=== PATIENT | female | born 1975 | race Two or more races ===

== ENCOUNTER 2021-09-21 09:31 | Outpatient (REF) | payer OTHER, SELFPAY ==
[2021-09-21 09:44] LABS: MANUAL DIFF FLAG NO
[2021-09-21 10:02] LABS: Basophils Percent Auto 0.6 % (0-2); Eosinophils Absolute Auto 0.3 X10*3/uL (0.0-0.4); Eosinophils Percent Auto 5.7 % (0-4); Hemoglobin 13.1 g/dl (12.0-16.0); Imm Gran Abs Auto 0.01 X10*3/uL (0.00-0.03); Imm Gran Pct Auto 0.2 % (0.0-0.4); Lymphocytes Absolute Auto 1.9 X10*3/uL (1.2-4.9); Lymphocytes Percent Auto 37.9 % (20-40); Mean Corpuscular HGB Conc 31.2 g/dl (31.0-35.0); Mean Corpuscular Hemoglobin 26.9 pg (27.0-33.0); Mean Corpuscular Volume 86.2 fL (80.0-98.0); Mean Platelet Volume 11.1 fL (9.4-12.3); Monocytes Absolute Auto 0.3 X10*3/uL (0.1-1.2); Monocytes Percent Auto 6.7 % (2-11); Neutrophils Absolute Auto 2.5 x10*3/uL (2.0-8.3); Neutrophils Percent Auto 48.9 % (45-73); Platelet Count 243 X10*3/uL (160-400); Red Blood Count 4.87 X10*6/uL (4.20-5.50); Red Cell Distribution Width 12.3 % (11.0-16.0); White Blood Count 5.1 X10*3/uL (4.8-10.8)
[2021-09-21 10:26] LABS: Alanine Aminotransferase 14 U/L (0-31); Albumin Level 4.2 g/dL (3.5-5.0); Alkaline Phosphatase 56 U/L (39-117); Anion Gap 12 (12-20); Aspartate Amino Transferase 15 U/L (5-31); Blood Urea Nitrogen 11 mg/dL (9-16); Calcium 9.5 mg/dL (8.4-10.2); Carbon Dioxide 27 mmol/L (22-29); Chloride 104 mmol/L (96-108); Cholesterol 136 mg/dL; Estimated Glomerular Filt Rate > 60; Glucose Fasting 93 mg/dL (60-99); HDL Cholesterol 44 mg/dL; LDL Cholesterol Calculated 84 mg/dl; Potassium 4.5 mmol/L (3.3-5.1); Sodium 138 mmol/L (135-145); Total Protein 7.4 g/dL (6.5-8.0); Triglycerides 43 mg/dL
== END 2021-09-21 09:32 | disposition home or self-care (01) ==
LOC: HO.LAB 09:31
PROVIDERS: PCP Nurse Practitioner Family; Visit Provider Nurse Practitioner Family
DX: I10 Essential (primary) hypertension (principal); E78.00 Pure hypercholesterolemia, unspecified
CPT/HCPCS: 36415; 80053; 80061; 85025

== ENCOUNTER 2023-12-09 10:31 | Outpatient (AMB) | payer OTHER, SELFPAY ==
[2023-12-09 10:45] VITALS: BP 112/60; PULSE 74; RESP 14; TEMP 36.4; O2SAT 99; BMI 24.1
--- NOTE | 2023-12-09 10:45 | A.OFFPC_ITS ---
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 Promotion Officer Required: No Accompanied by: Spouse Allergies No Known Allergies Allergy (Verified 12/09/23 10:55) Medication List - Last Reconciled 12/09/23 by Harpreet Sutton CNP No Known Home Meds Tobacco use date assessed: 12/09/23 Dental Screening Dental Screen Date: 12/09/23 Did you have a dental visit in the last 12 months?: Yes Did you have a dental problem in the last 6 months where you did not have access to dental care?: No Was dental information given to patient?: Patient has dentist HPI HPI Comments History of Present Illness Details New patient, accompanied by her Prior PCP:?[facility] Last office visit/CPE: About 2 years Acute issue(s): None Not on medications PMHx: Heart murmur, Gilbert syndrome SurgHx: Right hand surgery/cyst removal FHx: Mom: HTN, hypothyroidism. Dad: HTN, DM, Coumadin syndrome SocHx: Nonsmoker. Does not drink alcohol. No recreational drugs She notes that her pap smear test was at [facility] 1 year ago: normal She states that her last mammogram was 5 years ago: normal She notes that she has never had a colonoscopy done Interpretations by the patient's per patient's request [facility] Medical History (Updated 12/09/23 @ 11:16 by Harpreet Sutton CNP) Physical exam Family history of thyroid disease Otitis externa Surgical History (Updated 09/04/21 @ 14:33 by ADAN Levine) History of hand surgery Family History (Updated 09/04/21 @ 14:26 by ADAN Levine) Mother High blood pressure Hypothyroid Father Coumadin syndrome High blood pressure Diabetes Social History (Updated 09/04/21 @ 14:26 by ADAN Levine) Housing: House Alcohol intake: never Patient Tobacco Use Status: Never used Tobacco e-Cigarette/Vaping Use: Never Used Second Hand Smoke Exposure: No service: No Current occupational status: employed Current occupation: [employer] Cognitive needs: No Hearing needs: No Vision needs: No Questionnaire PHQ-9 Over the last 2 weeks, how often have you been bothered by any of the following problems? 1. Little interest or pleasure in doing things: not at all 2. Feeling down, depressed, or hopeless: not at all 3. Trouble falling or staying asleep, or sleeping too much: not at all 4. Feeling tired or having little energy: not at all 5. Poor appetite or overeating: not at all 6. Feeling bad about yourself - or that you are a failure or have let yourself or your family down: not at all 7. Trouble concentrating on things, such as reading the newspaper or watching television: not at all 8. Moving or speaking so slowly that other people could have noticed. Or the opposite - being so fidgety or restless that you have been moving around a lot more than usual: not at all 9. Thoughts that you would be better off or of hurting yourself in some way: not at all Total score: 0 Depression Screening Interpretation: Negative Depression Screening Done: Yes 96211 - PHQ-9 Billing: Yes Source: Developed by Drs. Carlos Verduzco, Kerry Salas, Matt Zambrano and colleagues, with an educational basil from [employer]. Thrive Questionnaire Date Thrive assessed: 12/09/23 I am a: Patient What is your living situation today?: I have a steady place to live Within the past 12 months, did the food you bought not last and you didn't have the money to get more?: Never true Within the past 12 months, did you worry whether your food would run out before you got money to buy more?: Never true Do you have trouble paying for medicines?: No Do you have trouble getting transportation to medical appointments?: No Do you have trouble paying your heating and electricity bill?: No Do you have trouble taking care of your child, family member or friend?: No Do you have trouble with day-to-day activities such as bathing, preparing meals, shopping, managing finances, etc.?: No Are you currently unemployed and looking for a job?: No Are you interested in more education?: No Please select the resources that you would like help with: None Currently or been in a relationship where the following occur: No concerns reported THRIVE Score: 0 AUDIT C Alcohol Use Questionnaire (AUDIT-C) 1. How often do you have a drink containing alcohol?: Never 3. How often do you have six or more drinks on one occasion?: Never Total Score: 0 CM-7 AMB Questionnaire CM-7 Date CM - 7 assessed: 12/09/23 Feeling nervous, anxious, or on edge: 0 = Not at all Not being able to stop or control worryin = Not at all Worrying too much about different things: 0 = Not at all Trouble relaxin = Not at all Being so restless that it is hard to sit still: 0 = Not at all Becoming easily annoyed or irritable: 0 = Not at all Feeling afraid as if something awful might happen: 0 = Not at all Total CM-7 score (0-4 normal; 5-9 mild; 10-14 moderate; 15-21 severe): 0 Source: Developed by Drs. Carlos Verduzco, Kerry Salas, Matt Zambrano and colleagues, with an educational basil from [employer]. CM-7 Assessment Billing CM-7 Assessment Tool: CM-7 Assessment 15394 Review of Systems Const Details: Denies chills, Denies fatigue, Denies fever(s), Denies headache(s) and Denies weakness HEENT Denies change in vision, Denies dizziness, Denies headache(s), Denies hearing loss, Denies nasal congestion, Denies sinus pain, Denies sinus pressure and Denies sore throat Card Denies chest pain, Denies lightheadedness, Denies dyspnea and Denies other (palpitations) Resp Denies cough, Denies dyspnea and Denies wheezing GI Denies abdominal pain, Denies melena, Denies hematochezia, Denies change in bowel habits, Denies dyspepsia and Denies nausea Denies hematuria and Denies dysuria Musc Denies abnormal gait, Denies myalgias, Denies arthralgias, Denies numbness and Denies tingling Skin/Breast Denies rash, Denies unusual bruising and Denies wounds Neuro Denies abnormal gait, Denies dizziness, Denies headache(s), Denies memory loss, Denies numbness, Denies Sensory deficit (Neuro), Denies tingling and Denies weakness Psych Denies anxiety, Denies depression and Denies memory loss Endo Denies cold intolerance, Denies fatigue, Denies heat intolerance, Denies polydipsia and Denies polyuria Luciano/Lymph Denies easy bleeding and Denies easy bruising Aller/Immun Denies wheezing Physical exam (Primary Care) Vital Signs: Last Vital Signs Temp 97.6 F 12/09/23 10:45 Pulse 74 12/09/23 10:45 Resp 14 12/09/23 10:45 BP 112/60 12/09/23 10:45 Pulse Ox 99 12/09/23 10:45 Oxygen Delivery Method Room Air 12/09/23 10:45 BMI result Body Mass Index 24.1 Tobacco/Smoking Status: Tobacco use Status Tobacco use date assessed 12/09/23 12/09/23 10:54 Patient Tobacco Use Status Never used Tobacco 12/09/23 10:46 e-Cigarette/Vaping Use Never Used 12/09/23 10:46 PHQ-9: PHQ-9 Score PHQ-9: Total score 0 12/09/23 10:54 Depression Screening Interpretation: Negative Thrive Assessment: Date of Thrive Assessment Date Thrive assessed 12/09/23 12/09/23 10:54 Currently or been in a relationship where the following occur: No concerns r eported Const Other: General: no acute distress, well developed, alert and awake Nutritional Appearance: well nourished Orientation/consciousness: patient oriented x3 HENMT Head: Yes normocephalic and Yes atraumatic Ears: hearing grossly normal bilaterally and TM's normal bilaterally General nose exam: Normal external nose present and Normal nares present Mouth: Normal oral and palatal mucosa present and moist mucous membranes Teeth and gingiva: dentition normal Throat: Yes oropharynx normal Eyes Pupils: Equal, round and reactive pupils present and Pupil accommodation reflex normal EOM: EOMs intact bilaterally Neck Neck: Yes normal visual inspection, Yes no lymphadenopathy and Yes trachea midline Thyroid: Thyroid normal Carotids: no bruits Lymphatic: no lymphadenopathy noted Chest Chest palpation & inspection: normal inspection of the chest Resp Effort & Inspection: normal respiratory effort Auscultation: clear to auscultation bilaterally Cardio Rate: regular rate Rhythm: regular rhythm Heart sounds: S1 normal heart sound present, S2 normal heart sound present, no gallops, no murmurs and no rubs Bruits: no abdominal aortic bruits and no carotid bruits GI Palpation (GI): No Abdominal aortic bruit present, Soft to palpation, nontender, No hepatosplenomegaly present and No Rebound tenderness present Auscultation: normal bowel sounds General: Yes no CVA tenderness Back/Spine/Pelvis Back: no CVA tenderness Cervical Spine: cervical ROM normal and No Cervical spine tenderness Thoracic/Lumbar Spine: thoraco-lumbar ROM normal, No pain with thoraco-lumbar ROM, No thoracic spinal tenderness and No lumbar spinal tenderness Skin General: warm and dry. Normal skin color. Normal skin turgor Lesions: no lesions Rashes: no rashes Trauma: no lacerations or abrasions Wounds: no wounds Nails: normal Neuro General: patient oriented x3, gait normal and CN's II-XI intact bilaterally Cranial nerves: Yes Equal, round and reactive pupils present Cognition (Neuro): normal cognition Gait exam (Neuro): Normal gait present Motor exam (neuro): 5/5 motor strength present throughout Sensory Exam: No Sensory deficit (Neuro) Deep tendon reflexes (DTR's): Right patellar reflex intensity grade: 2+ and Left patellar reflex intensity grade: 2+ Extrem General: Yes normal to inspection, No edema and No calf tenderness Psych Appearance: grossly normal Affect: normal affect Attitude: cooperative Thought process: Normal thought process present Assessment and Plan Assessment & Plan (1) Normal physical examination, routine: Code(s): Z00.00 - Encounter for general adult medical examination without abnormal findings Plan: No significant physical restrictions or limitations noted Healthy diet and routine exercise encouraged Advised to get lab work done and follow-up for telehealth visit for labs review in 2-3 weeks Return sooner with symptoms or concerns Verbalized understanding and agreed with the treatment plan (2) Cardiac murmur: Code(s): R01.1 - Cardiac murmur, unspecified Plan: Reports history of heart murmur Heart with RRR. No murmurs and no rubs (3) Gilbert syndrome: Code(s): E80.4 - Gilbert syndrome Plan: Reports history of Gilbert syndrome (4) Laboratory tests ordered as part of a complete physical exam (CPE): Code(s): Z00.00 - Encounter for general adult medical examination without abnormal findings Plan: Fasting labs ordered as part of a complete physical exam. Advised to fast for at least 10 hours before getting labs drawn. May drink water Verbalized understanding and agreed with treatment plan. (5) Pap smear for cervical cancer screening: Code(s): Z12.4 - Encounter for screening for malignant neoplasm of cervix Plan: Her pap smear test was at [facility] 1 year ago: normal. Record not available. Advised to sign a consent to obtain record from [facility] drum maker (6) Colon cancer screening: Code(s): Z12.11 - Encounter for screening for malignant neoplasm of colon Plan: She has never had a colonoscopy done Referred to [facility] gastroenterology for colonoscopy (7) Breast cancer screening by mammogram: Code(s): Z12.31 - Encounter for screening mammogram for malignant neoplasm of breast Plan: Last mammogram was 5 years ago: normal Mammogram ordered Orders: Orders MM screening mammo BI Today Z12.31 - Encounter for screening mammogram for malignant neoplasm of breast Complete Blood Count Auto Diff Today Z00.00 - Encounter for general adult medical examination without abnormal findings Comprehensive [place]. Panel Fast Today Z00.00 - Encounter for general adult medical examination without abnormal findings Lipid Panel Today Z00.00 - Encounter for general adult medical examination without abnormal findings TSH reflex Free T4 Today Z00.00 - Encounter for general adult medical examination without abnormal findings UA CC w/rflx Micro + Cult Today Z00.00 - Encounter for general adult medical examination without abnormal findings Microalbumin, Random (w Creat) Today Z00.00 - Encounter for general adult medical examination without abnormal findings Referrals Gastroenterology Referral Z12.11 - Encounter for screening for malignant ne oplasm of colon Coding Level of Care Code New Pt Prev Care 40-64y(79120) Diagnoses Normal physical examination, routine Z00.00 Cardiac murmur R01.1 Gilbert syndrome E80.4 Laboratory tests ordered as part of a complete physical exam (CPE) Z00.00 Pap smear for cervical cancer screening Z12.4 Colon cancer screening Z12.11 Breast cancer screening by mammogram Z12.31 Additional Codes CM-7 Assessment Billing - CM-7 Assessment Tool: CM-7 Assessment 49907 ([id number])
== END 2023-12-09 11:21 | disposition home or self-care (01) ==
PROVIDERS: Visit Provider Nurse Practitioner Family
DX: Z00.00 Encounter for general adult medical examination without abnormal findings (principal); R01.1 Cardiac murmur, unspecified; E80.4 Gilbert syndrome; Z12.11 Encounter for screening for malignant neoplasm of colon; Z12.31 Encounter for screening mammogram for malignant neoplasm of breast
CPT/HCPCS: 99396

== ENCOUNTER 2024-02-01 11:57 | Outpatient (REF) | payer OTHER, SELFPAY ==
--- NOTE | ~2024-02-01 | MM_ITS ---
EXAMINATION: MM SCREENING DIGITAL BREAST TOMOSYNTHESIS, BILATERAL CLINICAL INFORMATION: Screening. Asymptomatic. COMPARISON: Mammography: Compared with available prior. TECHNIQUE: Digital breast tomosynthesis is performed in both the craniocaudal and mediolateral oblique views along with computer-aided detection (CAD). Synthesized 2D images are generated from the tomosynthesis. FINDINGS: There are scattered areas of fibroglandular density (ACR BI-RADS breast composition Category b). Left: Focal asymmetry lower inner breast posterior depth. No suspicious calcifications or other abnormal findings. Right: Focal asymmetry central outer breast middle to posterior depth. No suspicious calcifications or other abnormal findings. MM/MM tomosynthesis screening BI IMPRESSION: Bilateral focal asymmetries. Additional imaging and possible ultrasound recommended at this time. ASSESSMENT: BI-RADS BI-RADS 0 - Incomplete: Needs additional Imaging. RECOMMENDATION: 1. Additional views of the bilateral breasts 2. Targeted ultrasound if warranted after review of the additional views. 3. Radiology department staff will contact the patient for additional imaging. Additional Imaging required This examination should not preclude the clinical evaluation of a suspicious palpable abnormality. This patient's information was entered into a reminder system with a target due date for their next mammogram. Electronically signed by: Dipti Salas DO 02/29/2024 09:08 PM EDT
== END 2024-02-01 11:58 | disposition home or self-care (01) ==
LOC: HO.MAMMO 11:57
PROVIDERS: PCP Nurse Practitioner Family; Visit Provider Nurse Practitioner Family
DX: Z12.31 Encounter for screening mammogram for malignant neoplasm of breast (principal)
CPT/HCPCS: 77063; 77067

== ENCOUNTER → 2024-02-01 12:00 | Outpatient (BNV) | payer OTHER, SELFPAY | PROVIDERS: PCP Nurse Practitioner Family; Visit Provider Internal Medicine | DX: Z12.31 Encounter for screening mammogram for malignant neoplasm of breast (principal) | CPT/HCPCS: 77063; 77067 ==

== ENCOUNTER 2025-02-06 12:00 | Outpatient (REF) | payer OTHER, SELFPAY ==
--- OUTSIDE RECORDS SUMMARY | 2025-02-06 12:45 | XMS_ITS | Clinical Summary ---
Author Organization [facility] Address [address] [place] [address] Care Team Providers Care Electrophysiology Scientist Name Role Phone Unavailable Primary Care Provider Unavailabl e Source Comments PLEASE NOTE, if this patient is a minor, it may be UNLAWFUL to discuss sensitive information that is contained in these records (such as FAMILY PLANNING, MENTAL HEALTH or SUBSTANCE ABUSE) with the minor patient's parent or other person without the patient's specific authorization.[facility] Allergies No known active allergies Medications No known medications Active Problems Problem Noted Date Diagnosed Date Heart murmur 08/29/2018 Gilbert syndrome 08/29/2018 Overview (08/29/2018): Diagnosed 5 year at [facility] medical Family History Medical History Relation Name Comments Clotting Disorder Father Hypertension Maternal Grandfather Hypertension Maternal Grandmother Hypertension Mother Thyroid Disease Mother Arthritis Sister Relation Name Status Comments Father Alive Maternal Grandfather Maternal Grandmother Mother Alive Sister Social History Tobacco Use Types Packs/Day Years Used Date Smoking Tobacco: Never Smokeless Tobacco: Never Alcohol Use Standard Drinks/Week Comments No 0 (1 standard drink = 0.6 oz pur e alcohol) Social Connections Answer Date Recorded Social Connections and Isolation 0 02/05/2019 Financial Resource Strain Answer Date R ecorded Financial Resource Strain 0 2018 Stress Answer Date Recorded Stress 0 02/05/2019 Physical Activity Answer Date Recorded Physical Activity 0 02/05/2019 Food Insecurity Answer Date Recorded Food 0 02/05/2019 Transportation Needs Answer Date Record ed Transportation 0 02/05/2019 Housing Stability Answer Date Recorded Housing 0 02/05/2019 Safety and Environment Answer Date Denis rded Safety 0 02/05/2019 Utilities Answer Date Recorded Utilities 0 02/05/2019 Employment Answer Date Recorded Employment 0 02/05/2019 Comments No Sex and Gender Information Value Date Recorded Sex Assigned at Female 08/29/2018 7:19 AM PDT Legal Sex Female 8:17 AM PST Gender Identity Female 08/29/2018 7:19 AM PDT Sexual Orientation Straight 08/29/2018 7: 19 AM PDT Last Filed Vital Signs Vital Sign Reading Time Taken Comments Blood Pressure 118/70 08/29/2018 10:20 AM EDT Pulse 89 08/29/2018 10:20 AM EDT Temperature 36.2 C (97.1 F) 08/29/2018 10:20 AM EDT Respiratory Rate - - Oxygen Saturation - - Inhaled Oxygen Concentration - - Weight 72.7 kg (160 lb 4.8 oz) 08/29/2018 10:20 AM EDT Height 165.1 cm (5' 5 ) 08/29/2018 10:20 AM EDT Body Mass Index 26.68 08/29/2018 10:20 AM EDT Plan of Treatment Not on file Insurance [facility]
== END 2025-02-06 12:01 | disposition home or self-care (01) ==
LOC: HO.MAMMO 12:00
PROVIDERS: PCP Nurse Practitioner Family; Visit Provider Nurse Practitioner Family
DX: Z13.89 Encounter for screening for other disorder (principal)

== ENCOUNTER 2025-03-05 12:42 | Outpatient (REF) | payer OTHER, SELFPAY ==
--- NOTE | ~2025-03-05 | MM_ITS ---
EXAMINATION(S): 1. MM DIAGNOSTIC DIGITAL BREAST TOMOSYNTHESIS, BILATERAL 2. Targeted ultrasound of the right breast 3. Targeted ultrasound of the left breast CLINICAL INFORMATION: Callback from screening obtained in January 2024 for bilateral findings: -Right: Focal asymmetry in the central outer breast middle to posterior depth -Left: Focal asymmetry in the lower inner quadrant posterior depth COMPARISON: February 01, 2024 and March 02, 2017. TECHNIQUE: Digital breast tomosynthesis is performed in full field ML 90 degrees along with computer-aided detection (CAD). Synthesized 2D images are generated from the tomosynthesis. Spot compression tomosynthesis were obtained. FINDINGS: BREAST COMPOSITION: There are scattered areas of fibroglandular density (ACR BI-RADS breast composition Category b). RIGHT BREAST: Previously suggested focal asymmetry in the lower outer quadrant is pliable with spot compression; local parenchyma is similar to prior study in 2017. Findings likely represented overlapping fibroglandular breast tissue. No significant masses, suspicious calcifications or other abnormalities are seen. Targeted ultrasound of the right breast was performed at the location of the mammographic finding. The survey throughout the lower outer quadrant did not reveal suspicious sonographic findings. LEFT BREAST: Previously suggested focal asymmetry in the lower inner quadrant is pliable with spot compression; local parenchyma is similar to prior study in 2017. Findings likely represented overlapping fibroglandular breast tissue. No significant masses, suspicious calcifications or other abnormalities are seen. Targeted ultrasound of the left breast was performed at the location of the mammographic finding. The survey throughout the lower inner quadrant did not reveal suspicious sonographic findings. MM/MM tomosynthesis added view BI IMPRESSION: RIGHT BREAST: Negative, no evidence of malignancy. LEFT BREAST: Negative, no evidence of malignancy. Patient may return to routine screening mammogram in one year. ASSESSMENT: BI-RADS 1 - Negative RECOMMENDATION: 1 year F/U Results were provided to the patient at time of visit by the technologist. This patient's information was entered into a reminder system with a target due date for their next mammogram. Electronically signed by: Wallace Justice MD 03/05/2025 02:33 PM EDT Workstation: [id number]
--- OUTSIDE RECORDS SUMMARY | 2025-03-05 15:38 | XMS_ITS | Clinical Summary ---
Author Organization [employer] [facility] Address [address] [place] [address] Care Team Providers Care Gun Welder Name Role Phone Catarino Schwartz MD Primary Care Provider [phone] Surgical History Surgery Date Site/Laterality Comments HAND SURGERY 02/10/2017 PROCEDURE: [place] UNLISTED PROCEDURE HANDS/FINGERS Medical History Medical History Date Comments Heart murmur DX:Heart murmur Gilbert syndrome DX:Gilbert synd kapil; COMMENT: benign condition conditon of hyperbili, no incr risk of morbidity History of 2019 novel kramer virus disease (COVID-19) DX:History of 2019 novel cor onavirus disease (COVID-19) Family History Medical History Relation Name Comments Hypertension Father Hypertension Mother Arthritis Sister x5 Breast cancer Neg Hx Ovarian cancer Neg Hx Relation Name Status Comments Brother Alive Father Mother Sister x5 Alive Social History Tobacco Use Types Packs/Day Years Used Date Smoking Tobacco: Never Smokeless Tobacco: Never Alcohol Use Standard Drinks/Week Comments No 0 (1 standard drink = 0.6 oz pur e alcohol) Comments Unknown Sex and Gender Information Value Date Recorded Sex Assigned at Not on file Legal Sex Female 7:33 PM EST Gender Identity Not on file Sexual Orientation Not on file Obstetrics History Last Filed Vital Signs Vital Sign Reading Time Taken Comments Blood Pressure 101/69 08/31/2021 8:51 AM EDT Pulse 78 08/31/2021 8:51 AM EDT Temperature - - Respiratory Rate - - Oxygen Saturation - - Inhaled Oxygen Concentration - - Weight 71.7 kg (158 lb) 08/31/2021 8:51 AM EDT Height 165.1 cm (5' 5 ) 08/31/2021 8:51 AM EDT Body Mass Index 26.29 08/31/2021 8:51 AM EDT Plan of Treatment Health Maintenance Due Date Last Done Comments Breast Cancer Screening 1974 DTaP,Tdap,and Td Vaccines (1 - Tdap) 1993 Hepatitis B Vaccines (1 of 3 - 19+ 3-dose series) 1993 Depression Screening 06/13/2024 Pneumococcal Vaccine: 50+ Ye ars (1 of 1 - PCV) 2024 Zoster Vaccines (1 of 2) 2024 Cervical Cancer Screening: P ap Smear 08/31/2024 08/31/2021 COVID-19 Vaccine (1 - 2023-2 5 season) 2025 Influenza Vaccine (#1) 2025 HIB Vaccines Aged Out No longer eligi ble based on patient's age to complete this topic HPV Vaccines Aged Out No longer eligi ble based on patient's age to complete this topic Hepatitis A Vaccines Aged Out No long er eligible based on patient's age to complete this topic IPV Vaccines Aged Out No longer eligi ble based on patient's age to complete this topic MMR Vaccines Aged Out No longer eligi ble based on patient's age to complete this topic Meningococcal ACWY Vaccine Aged Out N o longer eligible based on patient's age to complete this topic Meningococcal B Vaccine Aged Out No l onger eligible based on patient's age to complete this topic RSV Immunization Patients Un luba 20 months Aged Out No longer eligible b ased on patient's age to complete this topic Varicella Vaccines Aged Out No longer eligible based on patient's age to complete this topic Procedures Procedure Name Priority Date/Time Associated Diagnosis Comments PAP SMEAR Routine 08/31/2021 from Last 3 Months or Most Recently Relevant to Health Maintenance Results * Pap smear (08/31/2021) 08/31/2021 Narrative HISTORICAL TESTING LAB RESULTING AGENCY - 09/09/2021 11:31 AM EDT [id number] THINPREP PAP, IMAGED: NEGATIVE FOR SQUAMOUS INTRAEITHELIAL LESION AND MALIGNANCY. NOTE: THE PAP TEST IS A SCREENING TEST WITH AN INHERENT FALSE NEGATIVE RATE. AUTOMATED PRESCREENING OF ALL LIQUID BASED SPECIMENS IS PERFORMED BY THE THINPREP IMAGING SYSTEM UNLESS OTHERWISE STATED. JALEESA PARIKH(ASCP) (CASE ELECTRONICALLY SIGNED 03 30 2022) RESULT OF APTIMA HIGH RISK HPV ASSAY: HIGH RISK HPV: NEGATIVE (SEROTYPES 16,18,31,33,35,39,45,51,52,56,58,59,66,68) COMPLETED ON 2021-09-02 ADEQUACY: SATISFACTORY ENDOCERVICAL/TRANSFORMATION ZONE COMPONENT PRESENT. SOURCE: THINPREP PAP HPV ANY DX: REFLEX 16 AND 18, CERVICAL, IMAGED CLINICAL INFORMATION: HPV ANY DIAGNOSIS. HORMONES, PAP HX NEGATIVE 2016, LMP 08/05/2021, [Z01.419, Z12.4] us Julisa Rosales [facility] LAB CYTOLOGY ORDERABLES Final Result HISTORICAL TESTING LAB RESULTING AGENCY from Last 3 Months or Most Recently Relevant to Health Maintenance Care Teams Gun Welder Relationship Specialty Start Date End Date Catarino Schwartz MD [address] [place] [id number] PCP - General 02/17/11
--- OUTSIDE RECORDS SUMMARY | 2025-03-05 15:38 | XMS_ITS | Clinical Summary ---
Author Organization [facility] Address [address] [place] [address] Care Team Providers Care Plasterer Spray Gun Name Role Phone Unavailable Primary Care Provider [...] 08/29/2018 Overview (08/29/2018): Diagnosed 5 year at [facility] medical Family History Medical History Relation Name [...] of Treatment Not on file Insurance [facility]
== END 2025-03-05 12:43 | disposition home or self-care (01) ==
LOC: HO.MAMMO 12:42
PROVIDERS: PCP Nurse Practitioner Family; Visit Provider Nurse Practitioner Family
DX: N64.89 Other specified disorders of breast (principal)
CPT/HCPCS: 76642; 77062; 77066

== ENCOUNTER → 2025-03-05 13:00 | Outpatient (BNV) | payer OTHER, SELFPAY | PROVIDERS: PCP Nurse Practitioner Family; Visit Provider Radiology Body Imaging | DX: R92.8 Other abnormal and inconclusive findings on diagnostic imaging of breast (principal) | CPT/HCPCS: 76642; 77062; 77066 ==